=== PATIENT | male | born 1955 | race Caucasian/White ===

== ENCOUNTER → 2016-04-16 | Outpatient (CLI) | payer MEDICARE, BC ==
[~2016-04-16] MED LIST: ASPIR-LOW81 MG PO; CENTRUM SILVER1 EAC1 PO; CIPRO500 MG PO; CRESTOR 10 MG T10 MG PO; GLUCOPHAGE1000 MG PO; LANTUS SOL100 UNIT/1 SQ; LISINOPRIL40 MG PO; METOPROLOL TART25 MG PO; NASACORT16.9 ML; NORVASC 5 MG TAB5 MG PO; SINGULAIR10 MG PO; TOPROL XL 50 MG50 MG PO; ZANAFLEX4 MG PO
== END ==
DX: J30.89 Other allergic rhinitis (principal); J98.01 Acute bronchospasm; J18.9 Pneumonia, unspecified organism
CPT/HCPCS: 71020

== ENCOUNTER → 2016-05-26 | Outpatient (CLI) | payer MEDICARE, BC | LOC: RAD 12:53 | DX: R05 Cough (principal); J15.8 Pneumonia due to other specified bacteria; J98.11 Atelectasis | CPT/HCPCS: 71020 ==

== ENCOUNTER → 2016-06-02 | Outpatient (CLI) | payer MEDICARE, BC | LOC: RAD 12:45 | DX: S70.11XA Contusion of right thigh, initial encounter (principal); S80.11XA Contusion of right lower leg, initial encounter; E11.65 Type 2 diabetes mellitus with hyperglycemia; E11.69 Type 2 diabetes mellitus with other specified complication; E78.2 Mixed hyperlipidemia; I10 Essential (primary) hypertension | CPT/HCPCS: 73552; 73564; 73590 ==

== ENCOUNTER 2016-06-09 17:20 | Inpatient (IN) | payer MEDICARE, BC ==
[~2016-06-09] VITALS: Ht 182.9 cm; Wt 99.8 kg
[2016-06-09] MEDS ORDERED: GLUCOPHAGE1000 MG PO (18:46)
[2016-06-09] MEDS ORDERED: LISINOPRIL40 MG PO (18:46)
[2016-06-09] MEDS ORDERED: ASPIR-LOW81 MG PO (18:47)
[2016-06-09] MEDS ORDERED: LANTUS SOL100 UNIT/1 SQ (18:47)
[2016-06-09] MEDS ORDERED: NORVASC 5 MG TAB5 MG PO (18:48)
[2016-06-09] MEDS ORDERED: TOPROL XL 50 MG50 MG PO (18:48)
[2016-06-09] MEDS ORDERED: CRESTOR 10 MG T10 MG PO (18:48)
[2016-06-09] MEDS ORDERED: NASACORT16.9 ML (18:49)
[2016-06-09] MEDS ORDERED: SINGULAIR10 MG PO (18:49)
[2016-06-09] MEDS ORDERED: CENTRUM SILVER1 EAC1 PO (18:50)
[2016-06-09] MEDS ORDERED: ZANAFLEX4 MG PO (19:18)
[2016-06-09 19:44] LABS: HEMOGLOBIN 11.4 gm/dl (14.0-17.5); RED BLOOD COUNT 3.88 M/UL (4.20-5.50); WHITE BLOOD COUNT 13.6 K/UL (4.5-11.0)
[2016-06-10] MEDS ORDERED: METOPROLOL TART25 MG PO (00:51)
[2016-06-10 04:34] LABS: HEMOGLOBIN 10.3 gm/dl (14.0-17.5); RED BLOOD COUNT 3.63 M/UL (4.20-5.50)
[2016-06-11 04:53] LABS: HEMOGLOBIN 10.9 gm/dl (14.0-17.5); RED BLOOD COUNT 3.75 M/UL (4.20-5.50); WHITE BLOOD COUNT 11.2 K/UL (4.5-11.0)
[2016-06-11 05:08] LABS: BUN/CREATININE RATIO 21 (0-10)
[2016-06-11] MEDS ORDERED: CIPRO500 MG PO (13:30)
== END 2016-06-11 14:13 | disposition home or self-care (01) | DRG 603 ==
LOC: MED SURG 4 18:22
PROVIDERS: ADMIT Emergency Medicine
DX: L03.115 Cellulitis of right lower limb (principal); L40.50 Arthropathic psoriasis, unspecified; E78.5 Hyperlipidemia, unspecified; E55.9 Vitamin D deficiency, unspecified; G89.29 Other chronic pain; M54.2 Cervicalgia; G47.30 Sleep apnea, unspecified; E11.319 Type 2 diabetes mellitus with unspecified diabetic retinopathy without macular edema; I12.9 Hypertensive chronic kidney disease with stage 1 through stage 4 chronic kidney disease, or unspecified chronic kidney disease; E11.22 Type 2 diabetes mellitus with diabetic chronic kidney disease; N18.3 Chronic kidney disease, stage 3 (moderate); S70.11XA Contusion of right thigh, initial encounter; Z82.3 Family history of stroke; Z83.3 Family history of diabetes mellitus; Z82.49 Family history of ischemic heart disease and other diseases of the circulatory system; Z84.89 Family history of other specified conditions; Z79.82 Long term (current) use of aspirin; Z79.4 Long term (current) use of insulin; Z79.899 Other long term (current) drug therapy; V09.9XXA Pedestrian injured in unspecified transport accident, initial encounter
CPT/HCPCS: 36415; 73700; 80048; 80053; 82962; 85025; 85027; 87070; 87205; 93971; 94660; J1335; J1650; J3370; J7050; J7070

== ENCOUNTER → 2021-01-28 | Outpatient (CLI) | payer MEDICARE, BC ==
[~2021-01-28] MED LIST changes: +HYGROTON TAB 2525 MG PO; +LIPITOR TAB 2020 MG PO; +NIFEDIPINE ER30 M1 PO; +NORVASC10 MG PO
== END ==
LOC: KOH-I 15:15
DX: J20.9 Acute bronchitis, unspecified (principal); R05.9 Cough, unspecified; R06.02 Shortness of breath; E11.43 Type 2 diabetes mellitus with diabetic autonomic (poly)neuropathy; K80.80 Other cholelithiasis without obstruction
CPT/HCPCS: 71250; 74150

== ENCOUNTER 2021-02-23 17:52 | Emergency (ER) | payer MEDICARE, BC ==
[2021-02-23 19:09] LABS: RED BLOOD COUNT 4.39 M/UL (4.20-5.50); WHITE BLOOD COUNT 22.5 K/UL (4.5-11.0)
== END 2021-02-24 03:55 | disposition short-term general hospital (02) ==
LOC: ER1 17:52
PROVIDERS: Physician Assistant
DX: R42 Dizziness and giddiness (principal); S12.500A Unspecified displaced fracture of sixth cervical vertebra, initial encounter for closed fracture; S00.83XA Contusion of other part of head, initial encounter; E11.9 Type 2 diabetes mellitus without complications; Z79.4 Long term (current) use of insulin; W19.XXXA Unspecified fall, initial encounter
CPT/HCPCS: 70450; 71045; 72125; 80053; 82550; 82553; 83735; 83874; 83880; 84439; 84443; 84484; 85025; 85610; 85730; 93005; 99285

== ENCOUNTER 2021-09-12 16:17 | Inpatient (IN) | payer MEDICARE, BC ==
[~2021-09-12] VITALS: Ht 182.9 cm; Wt 87.8 kg
[~2021-09-12 16:17] MED LIST changes: -ASPIR-LOW81 MG PO; +ASPIRIN81 MG PO; -METOPROLOL TART25 MG PO; +METOPROLOL TART50 MG PO
[2021-09-12 17:15] LABS: HEMOGLOBIN 10.8 gm/dl (14.0-17.5); RED BLOOD COUNT 3.53 M/UL (4.20-5.50); WHITE BLOOD COUNT 7.3 K/UL (4.5-11.0)
[2021-09-12 18:11] LABS: BORDETELLA PARAPERTUSSIS Not Detected (Not Detectd); BORDETELLA PERTUSSIS Not Detected (Not Detectd); CHLAMYDIA PNEUMONIAE Not Detected (Not Detectd); CORONAVIRUS HKU1 Not Detected (Not Detectd); CORONAVIRUS NL63 Not Detected (Not Detectd); CORONAVIRUS OC43 Not Detected (Not Detectd); CORONOAVIRUS 229E Not Detected (Not Detectd); HUMAN METAPNEUMOVIRUS Not Detected (Not Detectd); HUMAN RHINOVIRUS/ENTEROVIRUS Not Detected (Not Detectd); INFLUENZA A Not Detected (Not Detectd); INFLUENZA B Not Detected (Not Detectd); MYCOPLASMA PNEUMONIAE Not Detected (Not Detectd); PARAINFLUENZA VIRUS 1 Not Detected (Not Detectd); PARAINFLUENZA VIRUS 2 Not Detected (Not Detectd); PARAINFLUENZA VIRUS 3 Not Detected (Not Detectd); PARAINFLUENZA VIRUS 4 Not Detected (Not Detectd); RESPIRATORY SYNCYTIAL VIRUS Not Detected (Not Detectd)
[2021-09-12 19:07] LABS: SARS-CoV-2 NOT DETECTED (Not Detectd)
[2021-09-13 05:36] LABS: HEMOGLOBIN 10.3 gm/dl (14.0-17.5); RED BLOOD COUNT 3.42 M/UL (4.20-5.50)
[2021-09-13] MEDS ORDERED: PROTONIX 40 MG40 M1 PO (10:58)
[2021-09-13] MEDS ORDERED: ELIQUIS5 MG PO (10:58)
[2021-09-13] MEDS ORDERED: MIDODRINE HCL2.5 MG PO (10:58)
[2021-09-13] MEDS ORDERED: ZOFRAN ODT 4 MG4 MG PO (10:58)
[2021-09-13] MEDS ORDERED: XIIDRA EYEBOTH (10:59)
[2021-09-13] MEDS ORDERED: ACETAMINOPHEN325 MG PO (10:59)
[2021-09-13] MEDS ORDERED: MIRTAZAPINE15 MG PO (10:59)
[2021-09-13] MEDS ORDERED: LEVEMIR100 UNIT/1 SQ (11:00)
[2021-09-13] MEDS ORDERED: CRESTOR40 MG PO (11:00)
[2021-09-14 02:43] LABS: HEMOGLOBIN 10.1 gm/dl (14.0-17.5); RED BLOOD COUNT 3.33 M/UL (4.20-5.50); WHITE BLOOD COUNT 7.9 K/UL (4.5-11.0)
[2021-09-15 01:55] LABS: HEMOGLOBIN 10.5 gm/dl (14.0-17.5); RED BLOOD COUNT 3.44 M/UL (4.20-5.50); WHITE BLOOD COUNT 8.6 K/UL (4.5-11.0)
[2021-09-16 02:31] LABS: HEMOGLOBIN 9.9 gm/dl (14.0-17.5); RED BLOOD COUNT 3.24 M/UL (4.20-5.50); WHITE BLOOD COUNT 7.3 K/UL (4.5-11.0)
[2021-09-17 03:00] LABS: HEMOGLOBIN 9.5 gm/dl (14.0-17.5); RED BLOOD COUNT 3.09 M/UL (4.20-5.50); WHITE BLOOD COUNT 7.6 K/UL (4.5-11.0)
[2021-09-17] MEDS ORDERED: LEVOFLOXACIN250 MG PO (10:58)
--- NOTE | 2021-09-17 15:46 | NUR ---
ROOM AIR O2 SAT 86%
== END 2021-09-17 19:39 | disposition home health service (06) | DRG 280 ==
LOC: ER1 16:17 → CDU 18:35 → PROG CARE 18:35
PROVIDERS: Family Medicine; Internal Medicine; Internal Medicine Nephrology; Physician Assistant; Preventive Medicine Occupational Medicine; ADMIT Internal Medicine
PROC: B24BZZZ Ultrasonography of Heart with Aorta (ICD-10-PCS; principal; 2021-09-13)
PROC: 5A1D70Z Performance of Urinary Filtration, Intermittent, Less than 6 Hours Per Day (ICD-10-PCS; 2021-09-13)
PROC: 5A1D70Z Performance of Urinary Filtration, Intermittent, Less than 6 Hours Per Day (ICD-10-PCS; 2021-09-14)
PROC: 5A09357 Assistance with Respiratory Ventilation, Less than 24 Consecutive Hours, Continuous Positive Airway Pressure (ICD-10-PCS; 2021-09-16)
PROC: 5A1D70Z Performance of Urinary Filtration, Intermittent, Less than 6 Hours Per Day (ICD-10-PCS; 2021-09-17)
PROC: 5A09357 Assistance with Respiratory Ventilation, Less than 24 Consecutive Hours, Continuous Positive Airway Pressure (ICD-10-PCS; 2021-09-17)
DX: I13.2 Hypertensive heart and chronic kidney disease with heart failure and with stage 5 chronic kidney disease, or end stage renal disease (principal); J18.9 Pneumonia, unspecified organism; I21.A1 Myocardial infarction type 2; J96.21 Acute and chronic respiratory failure with hypoxia; N18.6 End stage renal disease; N17.0 Acute kidney failure with tubular necrosis; J96.22 Acute and chronic respiratory failure with hypercapnia; J90 Pleural effusion, not elsewhere classified; N39.0 Urinary tract infection, site not specified; I50.30 Unspecified diastolic (congestive) heart failure; E11.40 Type 2 diabetes mellitus with diabetic neuropathy, unspecified; G47.33 Obstructive sleep apnea (adult) (pediatric); Z96.611 Presence of right artificial shoulder joint; E66.9 Obesity, unspecified; I25.10 Atherosclerotic heart disease of native coronary artery without angina pectoris; M45.9 Ankylosing spondylitis of unspecified sites in spine; B96.29 Other Escherichia coli [E. coli] as the cause of diseases classified elsewhere; Z96.612 Presence of left artificial shoulder joint; R53.83 Other fatigue; B96.5 Pseudomonas (aeruginosa) (mallei) (pseudomallei) as the cause of diseases classified elsewhere; E11.22 Type 2 diabetes mellitus with diabetic chronic kidney disease; Z99.81 Dependence on supplemental oxygen; Z86.711 Personal history of pulmonary embolism; Z99.2 Dependence on renal dialysis; Z86.718 Personal history of other venous thrombosis and embolism; Z79.01 Long term (current) use of anticoagulants; Z95.5 Presence of coronary angioplasty implant and graft; Z90.49 Acquired absence of other specified parts of digestive tract; Z98.890 Other specified postprocedural states; Z82.49 Family history of ischemic heart disease and other diseases of the circulatory system; Z83.3 Family history of diabetes mellitus; Z79.82 Long term (current) use of aspirin; Z79.4 Long term (current) use of insulin; Z68.26 Body mass index [BMI] 26.0-26.9, adult
CPT/HCPCS: ECHO; 36415; 36600; 71045; 78452; 78580; 80048; 80053; 81001; 82550; 82553; 82803; 82962; 83605; 83690; 84439; 84443; 84484; 85025; 85027; 85379; 85610; 85652; 85730; 86140; 87077; 87086; 87186; 87633; 90937; 92526; 92610; 93005; 93017; 93306; 93970; 94660; 94664; 94760; 96361; 96374; 96375; 97162; 97530; 99285; A9502; A9540; C9113; J0692; J0696; J1644; J2785; J7030; Q9967